=== PATIENT | male | born 2000 | race Caucasian/White ===

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

== ENCOUNTER → 2020-11-03 | Outpatient (CLI) | payer OTHER | END | disposition home or self-care (01) | LOC: LABWHC1 13:29 | PROVIDERS: ATTEND Otolaryngology | DX: Z01.818 Encounter for other preprocedural examination (principal); Z20.822 Contact with and (suspected) exposure to COVID-19 | CPT/HCPCS: U0003; C9803; U0005 ==

== ENCOUNTER 2020-12-24 09:04 | Emergency (ER) | payer OTHER ==
[2020-12-24 09:09] VITALS: BP 125/74; PULSE 60; RESP 18; TEMP 97.8
--- NOTE | 2020-12-24 09:28 | XR ---
EXAMINATION TYPE: XR wrist complete LT DATE OF EXAM: 12/24/2020 COMPARISON: NONE HISTORY: Pain TECHNIQUE: Four views submitted. FINDINGS: The osseous structures are intact. The joint spaces are preserved and there is no acute fracture or dislocation. IMPRESSION: 1. No definite acute fracture or dislocation if symptoms persist, follow-up study in 7 to 10 days wo uld be suggested
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
== END 2020-12-24 10:05 | disposition home or self-care (01) ==
LOC: EC 09:04
DX: S63.502A Unspecified sprain of left wrist, initial encounter (principal); V00.131A Fall from skateboard, initial encounter; F12.90 Cannabis use, unspecified, uncomplicated; Y93.51 Activity, roller skating (inline) and skateboarding
CPT/HCPCS: 99283

== ENCOUNTER 2023-03-13 14:10 | Observation (INO) | payer OTHER ==
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
[2023-03-13] MEDS ORDERED: DIPH,PERTUS(ACELL)TETVAC-LF 0.5 ML VIAL IM ONE (14:32)
[2023-03-13] MEDS ORDERED: SODIUM CHLORIDE 0.9% 1,000 ML IV STA (14:32)
[2023-03-13] MEDS ORDERED: HYDROmorphone 1 MG/ML 1 ML SYRINGE IVP STA ×2 (14:32→15:58)
[2023-03-13 14:47] LABS: Basophils % (A) 0 %; Eosinophils # (A) 0.2 k/uL (0-0.7); Eosinophils % (A) 2 %; HCT 49.2 % (39.0-53.0); Lymphocytes # (A) 1.4 k/uL (1.0-4.8); Lymphocytes % (A) 13 %; MCH 29.5 pg (25.0-35.0); MCHC 32.6 g/dL (31.0-37.0); MCV 90.4 fL (80.0-100.0); Monocytes # (A) 0.5 k/uL (0-1.0); Monocytes % (A) 5 %; Neutrophils # (A) 8.4 k/uL (1.3-7.7); Neutrophils % (A) 78 %; Platelet Count 267 k/uL (150-450); RBC 5.44 m/uL (4.30-5.90); RDW 12.6 % (11.5-15.5); WBC 10.8 k/uL (3.8-10.6)
[2023-03-13 15:00] LABS: ALT 29 U/L (4-49); AST 49 U/L (17-59); African American GFR (CKD) >90 (>60 ml/min/1.73 sqM); Albumin 5.3 g/dL (3.5-5.0); Alcohol <10 mg/dL; Alkaline Phosphatase 65 U/L (38-126); Anion Gap 14 mmol/L; Blood Urea Nitrogen 22 mg/dL (9-20); Calcium 9.9 mg/dL (8.4-10.2); Carbon Dioxide 23 mmol/L (22-30); Chloride 102 mmol/L (98-107); Glucose 108 mg/dL (74-99); Non-African American GFR(CKD) >90 (>60 ml/min/1.73 sqM); Sodium 139 mmol/L (137-145); Total Bilirubin 0.8 mg/dL (0.2-1.3); Total Protein 8.5 g/dL (6.3-8.2)
[2023-03-13 15:12] LABS: INR 1.1 (<1.2); Partial Thromboplastin Time 22.1 sec (22.0-30.0); Prothrombin Time 11.5 sec (9.0-12.0)
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
[2023-03-13] MEDS ORDERED: PROPOFOL 10 MG/ML 20 ML VIAL IV ONE (15:58)
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
[2023-03-13] MEDS ORDERED: NALOXONE 0.4 MG/ML 1 ML VIAL IV PRN (17:03)
[2023-03-13] MEDS ORDERED: ONDANSETRON 4 MG/2 ML VIAL IVP PRN (17:03)
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
[2023-03-13] MEDS: SODIUM CHLORIDE 0.9% 1,000 ML IV SCH (17:41)
--- NOTE | 2023-03-13 19:19 | XR ---
EXAMINATION TYPE: XR hand complete LT DATE OF EXAM: 03/13/2023 6:55 PM INDICATION: Patient age:Male; 23 years old; Reason for study: pain; COMPARISON: None TECHNIQUE: Frontal, lateral and oblique views of the left hand were obtained. FINDINGS: Normal alignment of the visualized joints. No acute osseous pathology is identified. No e vidence of soft tissue swelling. No radiopaque foreign body. IMPRESSION: No acute osseous pathology. No radiopaque foreign body.
[2023-03-13] MEDS: HYDROmorphone 1 MG/ML 1 ML SYRINGE IVP PRN (20:14)
[2023-03-13 23:23] LABS: Appearance,Urine Clear (Clear); Bilirubin,Urine Negative (Negative); Blood,Urine Negative (Negative); Color,Urine Light Yellow; Glucose,Urine (UA) Negative (Negative); Ketones,Urine 2+ (Negative); Leukocyte Esterase,Urine Negative (Negative); Nitrite,Urine Negative (Negative); Protein,Urine Negative (Negative); Urobilinogen,Urine <2.0 mg/dL (<2.0)
[2023-03-13 23:41] LABS: Amphetamine Screen,Urine Not Detected (NotDetected); Barbiturate Screen,Urine Not Detected (NotDetected); Benzodiazepines Screen,Urine Not Detected (NotDetected); Cocaine Screen,Urine Not Detected (NotDetected); Methadone Screen, Urine Not Detected (NotDetected); Opiate Screen,Urine Detected (NotDetected); Oxycodone Screen, Urine Not Detected (NotDetected); Phencyclidine Screen,Urine Not Detected (NotDetected); Tricyclic Antidepressant,Urine Not Detected (NotDetected); Urn Cannabinoid Scrn Detected (NotDetected)
[2023-03-13 23:43] LABS: Specific Gravity,Urine 1.046 (1.001-1.035)
[2023-03-14] MEDS: SODIUM CHLORIDE 0.9% 1,000 ML IV SCH ×2 (01:07→20:21)
[2023-03-14] MEDS: HYDROmorphone 1 MG/ML 1 ML SYRINGE IVP PRN (01:37)
[2023-03-14 07:52] LABS: Basophils % (A) 0 %; Eosinophils # (A) 0.2 k/uL (0-0.7); Eosinophils % (A) 3 %; HCT 44.2 % (39.0-53.0); HGB 14.8 gm/dL (13.0-17.5); Lymphocytes % (A) 11 %; MCH 30.7 pg (25.0-35.0); MCHC 33.6 g/dL (31.0-37.0); MCV 91.6 fL (80.0-100.0); Monocytes # (A) 0.6 k/uL (0-1.0); Monocytes % (A) 7 %; Neutrophils % (A) 78 %; Platelet Count 211 k/uL (150-450); RBC 4.82 m/uL (4.30-5.90); RDW 12.7 % (11.5-15.5)
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
[2023-03-14 08:14] LABS: African American GFR (CKD) >90 (>60 ml/min/1.73 sqM); Anion Gap 9 mmol/L; Blood Urea Nitrogen 11 mg/dL (9-20); Calcium 8.9 mg/dL (8.4-10.2); Carbon Dioxide 25 mmol/L (22-30); Chloride 105 mmol/L (98-107); Glucose 114 mg/dL (74-99); Non-African American GFR(CKD) >90 (>60 ml/min/1.73 sqM); Potassium 4.1 mmol/L (3.5-5.1); Sodium 139 mmol/L (137-145)
[2023-03-14] MEDS: KETOROLAC 15 MG/ML 1 ML VIAL IVP SCH ×3 (08:40→20:38)
--- NOTE | 2023-03-14 08:53 | XR ---
EXAMINATION TYPE: XR chest 2V DATE OF EXAM: 03/14/2023 COMPARISON: 03/13/2023 TECHNIQUE: PA and lateral views submitted. HISTORY: Shortness of breath FINDINGS: The lungs are clear and there is no pneumothorax, pleural effusion, or focal pneumonia. Heart size normal and no overt failure. Osseous structures demonstrate hypertrophic and degenerative changes of the spine. Postsurgical changes overlying the vertebral canal. Right clavicular fracture.. Hyperinfla tion lungs associated with asthma or COPD. Biapical pleural thickening. IMPRESSION: 1. No sizable pneumothorax on today's exam.
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
[2023-03-14] MEDS: ACETAMINOPHEN TAB 500 MG TAB PO SCH ×2 (11:18→16:59)
[2023-03-14] MEDS: ENOXAPARIN 40 MG/0.4 ML SYRINGE SQ SCH (11:19)
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
[2023-03-14 14:16] VITALS: BMI 19.0
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
[2023-03-15] MEDS: ACETAMINOPHEN TAB 500 MG TAB PO SCH ×3 (01:37→12:27)
[2023-03-15] MEDS: KETOROLAC 15 MG/ML 1 ML VIAL IVP SCH ×3 (01:38→12:27)
[2023-03-15 07:59] VITALS: BP 107/64; PULSE 50; RESP 16; TEMP 98.1
[2023-03-15] MEDS: ENOXAPARIN 40 MG/0.4 ML SYRINGE SQ SCH (09:37)
[2023-03-15] MEDS: SODIUM CHLORIDE 0.9% 1,000 ML IV SCH (10:07)
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
--- NOTE | 2023-03-15 14:04 | CA ---
Transthoracic Echo Report Name: Favio Mccormick Age: 23 Gender: M : 2000 Exam Date: 03/14/2023 15:13 Exam Location: [facility] Ht (in): 72 Wt (lb): 140 Ordering Physician: Dasha Ortez Attending/Referring Phys: [id number], [facility] Director Romeo Reyes Procedure CPT: Indications: dilated aortic root, ? bicuspid aortic valve Cardiac Hx: Technical Quality: Good Contrast 1: Total Dose (mL): Contrast 2: Total Dose (mL): MEASUREMENTS (Male / Female) Normal Values 2D ECHO LV Diastolic Diameter PLAX 4.9 cm 4.2 - 5.9 / 3.9 - 5.3 cm LV Systolic Diameter PLAX 3.1 cm IVS Diastolic Thickness 0.9 cm 0.6 - 1.0 / 0.6 - 0.9 cm LVPW Diastolic Thickness 0.8 cm 0.6 - 1.0 / 0.6 - 0.9 cm LV Relative Wall Thickness 0.4 RV Internal Dim ED PLAX 2.4 cm LVOT Diameter 2.6 cm Aortic Root Diameter 3.6 cm LA Systolic Diameter LX 2.2 cm 3.0 - 4.0 / 2.7 - 3.8 cm LV Diastolic Volume MOD BP 87.6 cm??? 67 - 155 / 56 - 104 cm??? LV Systolic Volume MOD BP 44.5 cm??? 22 - 58 / 19 - 49 cm??? LV Ejection Fraction MOD BP 49.2 % >= 55 % LV Cardiac Index MOD BP 1305.4 cm???/min???m??? LV Diastolic Volume MOD 4C 71.4 cm??? LV Systolic Volume MOD 4C 35.3 cm??? LV Ejection Fraction MOD 4C 50.6 % LV Cardiac Index MOD 4C 1093.8 cm???/min???m??? LV Diastolic Length 4C 7.2 cm LV Systolic Length 4C 6.3 cm LV Diastolic Volume MOD 2C 102.5 cm??? LV Systolic Volume MOD 2C 51.5 cm??? LV Ejection Fraction MOD 2C 49.8 % LV Cardiac Index MOD 2C 1545.9 cm???/min???m??? LV Diastolic Length 2C 7.6 cm LV Systolic Length 2C 6.9 cm LA Volume 39.3 cm??? 18 - 58 / 22 - 52 cm??? Ascending Aorta Diameter 3.2 cm DOPPLER AV Peak Velocity 80.1 cm/s AV Peak Gradient 2.6 mmHg LVOT Peak Velocity 61.1 cm/s LVOT Peak Gradient 1.5 mmHg AV Area Cont Eq pk 4.1 cm??? MV Peak Velocity 89.1 cm/s MV Peak Gradient 3.2 mmHg MV Mean Velocity 45.0 cm/s MV Mean Gradient 1.0 mmHg MV Velocity Time Integral 31.6 cm Mitral E Point Velocity 71.6 cm/s Mitral A Point Velocity 43.5 cm/s Mitral E to A Ratio 1.6 MV Deceleration Time 208.9 ms MV E' Velocity 13.9 cm/s Mitral E to MV E' Ratio 5.1 TR Peak Velocity 199.3 cm/s TR Peak Gradient 15.9 mmHg Right Ventricular Systolic Press 20.9 mmHg FINDINGS Left Ventricle Normal LV size and wall thickness. Left ventricular ejection fraction is estimated at 60-65 %. Right Ventricle Normal right ventricular size. Right Atrium Normal right atrial size. Left Atrium Normal left atrial size. Mitral Valve Structurally normal mitral valve. No mitral stenosis. No mitral regurgitation. Aortic Valve Trileaflet aortic valve. No aortic valve stenosis or regurgitation. Tricuspid Valve Structurally normal tricuspid valve. No tricuspid stenosis. No tricuspid regurgitation. Pulmonic Valve Pulmonic valve not well visualized. Trace PI. Pericardium No pleural effusion. Aorta Ao root mohsen =3.6cm. Ascending aorta 3.2 cm. Normal size aortic root and proximal ascending aorta. CONCLUSIONS Normal LV size, wall thickness and systolic function. Estimated LVEF 60-65%. No obvious regional wall motion abnormality. No significant diastolic dysfunction. No significant valvular dysfunction. Overall normal chamber sizes. No pericardial effusion. No prior echo to compare with. Previewed by: Dr Naveen Licona (Electronically Signed) Final Date: 15 March 2023 10:37
== END 2023-03-15 15:16 | disposition home or self-care (01) ==
LOC: EC 14:10 → 4SSUR 17:03
PROVIDERS: ADMIT Surgery Plastic and Reconstructive Surgery; ATTEND Surgery Plastic and Reconstructive Surgery
DX: S42.001A Fracture of unspecified part of right clavicle, initial encounter for closed fracture (principal); V86.96XA Unspecified occupant of dirt bike or motor/cross bike injured in nontraffic accident, initial encounter; J93.83 Other pneumothorax; S01.511A Laceration without foreign body of lip, initial encounter; I77.819 Aortic ectasia, unspecified site; S60.222A Contusion of left hand, initial encounter; V86.06XA Driver of dirt bike or motor/cross bike injured in traffic accident, initial encounter; Z88.5 Allergy status to narcotic agent; Z88.0 Allergy status to penicillin
CPT/HCPCS: 96376 ×4; 96372 ×3; 96375 ×3; 96361; 96374; 99285; 36415; 94760; 93005 ×2; 93306; 86900; 86901; 80053; 80048; 84484 ×2; 85025 ×2; 85610; 85730; 86850; 81003; 80306; 72170; 73030; 73130; 71045; 71046 ×2; 72129; 72125; 72132; 70486; 70450; 71260; 74177; 90715; G0378 ×3; G0480; J2405; J1650 ×2; J1170 ×2; J1885 ×2; J2704; Q9967; 80320

== ENCOUNTER 2023-09-09 11:24 | Emergency (ER) | payer SELFPAY ==
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
[2023-09-09 12:16] VITALS: BP 112/78; PULSE 80; RESP 18; TEMP 97.3
== END 2023-09-09 13:09 | disposition home or self-care (01) ==
LOC: EC 11:24
DX: S62.101A Fracture of unspecified carpal bone, right wrist, initial encounter for closed fracture (principal); F12.90 Cannabis use, unspecified, uncomplicated; Z88.0 Allergy status to penicillin; Z88.5 Allergy status to narcotic agent; X58.XXXA Exposure to other specified factors, initial encounter
CPT/HCPCS: 99283